=== PATIENT | male | born 1985 | race Caucasian/White ===

== ENCOUNTER → 2021-02-11 08:59 | Outpatient (CLI) | payer OTHER, SELFPAY ==
[2021-02-11 10:05] LABS: Absolute Lymphocyte Count 1.27 X10^3/uL (0.83-4.51); Absolute Neutrophil Count 2.3 X10^3/uL (2.0-7.7); Basophil# 0.03 X10^3/uL; Basophil% 0.7 % (0-1); Eosinophil# 0.07 X10^3/uL; Eosinophils% 1.7 % (0-5); Hematocrit 44.7 % (40-54); Hemoglobin 15.2 g/dL (13.0-16.5); Lymphocyte # 1.27 X10^3/ul (0.83-4.51); Lymphocyte % 31.3 % (19-41); Mean Corpuscular Volume 88.3 fL (80-94); Mean Platelet Vol. 10.9 fl (6.2-12.0); Monocyte% 9.9 % (0-10); NRBC Flagged by Analyzer 0 % (0-5); Neutrophil # 2.28 X10^3/uL (2.7-7.7); Neutrophil % 56.2 % (47-70); Platelet Count 188 K/mm3 (150-450); RBC Distribution Width CV 12.8 % (11.6-14.6); RBC Distribution Width SD 41.2 fl (35.1-43.9); Red Blood Count 5.06 M/mm3 (4.6-6.2); White Blood Count 4.1 K/mm3 (4.4-11.0)
[2021-02-11 10:27] LABS: ALB/GLOB Ratio 1.3 RATIO (0.9-2.4); AST(SGOT) 17 U/L (15-37); Alanine Aminotransfer ALT/SGPT 23 U/L (16-61); Albumin, Serum 4.2 g/dL (3.2-5.0); Alkaline Phosphatase 57 U/L (45-117); Anion Gap 3 (5-15); BUN 15 mg/dL (7-18); BUN/Creat Ratio 14.2 RATIO (10-20); Chloride 106 mmol/L (98-107); Cholesterol 148 mg/dL (200); Creatinine, Serum 1.06 mg/dL (0.70-1.30); EST Glomerular Filtration Rate 85 mL/min (>60); Est Glom Filt Rate - Afr Amer 103 mL/min (>60); Globulin 3.3 g/dL (2.2-4.2); Glucose 92 mg/dL (74-106); High Density Lipoprotein 53 mg/dL; Protein, Total 7.5 g/dL (6.4-8.2); Sodium Level 136 mmol/L (136-145); Triglycerides 61 mg/dL; Very Low Density Lipoprotein 12 mg/dL (5-40)
== END ==
PROVIDERS: Visit Provider Family Medicine
DX: Z82.49 Family history of ischemic heart disease and other diseases of the circulatory system (principal)
CPT/HCPCS: 80053; 80061; 85025

== ENCOUNTER → 2021-02-19 12:19 | Outpatient (CLI) | payer OTHER, SELFPAY ==
[2021-02-19 16:45] LABS: AST(SGOT) 19 U/L (15-37); Alanine Aminotransfer ALT/SGPT 26 U/L (16-61); Albumin, Serum 4.3 g/dL (3.2-5.0); Alkaline Phosphatase 65 U/L (45-117); Bilirubin, Direct 0.18 mg/dL (0.00-0.30); Globulin 3.5 g/dL (2.2-4.2); Protein, Total 7.8 g/dL (6.4-8.2)
== END ==
PROVIDERS: Visit Provider Family Medicine
DX: E80.6 Other disorders of bilirubin metabolism (principal)
CPT/HCPCS: 36415; 80076

== ENCOUNTER → 2022-06-23 | Outpatient (CLI) | payer OTHER, SELFPAY ==
[2022-06-28 15:43] LABS: HSV Culture Without Typing Positive (.)
== END | disposition home or self-care (01) ==
LOC: LABSPEC 17:59
PROVIDERS: Visit Provider Family Medicine
DX: N48.9 Disorder of penis, unspecified (principal)
CPT/HCPCS: 87255

== ENCOUNTER → 2025-02-13 | Outpatient (CLI) | payer OTHER, SELFPAY ==
--- OUTSIDE RECORDS SUMMARY | 2025-02-13 09:03 | XMS RPT_ITS | CCD ---
Author Organization [facility] Informalleghany health Partnership [facility] Care Team Providers Care Data Warehousing Manager Name Role Phone Yokasta Sarkar Attending Unavailable Yokasta Sarkar Attending Unavailable Shreyas Barker Attending Unavailable Sully GABRIEL, Olu Jacobs Primary Care Provider Medications Current Medications Medication Drug Class(es) Dates Sig (Normalized) Sig (Original) benzonatate 100 mg oral capsule (2 sources) Non-narcotic Antitussive Start: 02-21-2013 take 1 capsule by mouth three times daily as needed for cough benzonatate (TESSALON PERLES) 100 mg capsule Indications: Bronchitis Take 1 capsule by mouth three times daily as needed for Cough. 30 capsule 0 02/21/2013 Active Problems Active Problems Problem Classification Problem Date Documented Da te Episodic/Chronic Other connective tissue disease (2 sources) Pain in right foot; Translations: [Pain in right foot] 04-04-2024 Episodic Other male genital disorders (1 source) Disorder of penis, unspecified; Translations: [Disorder of penis, unspecified] Onset: 07-02-2022 Chronic Superficial injury; contusion (1 source) Contusion of right foot; Translations: [Contusion of right foot, initial encounter] 04-04-2024 Episodic Past or Other Problems Problem Classification Problem Date Documented Da te Episodic/Chronic Other connective tissue disease (1 source) Pain in left toe(s); Translations: [Pain in left toe(s)] Onset: 03-18-2022 Episodic Results Test Name Value Interpretation Reference Range Facility XR Foot - right AP and Later al and obliqueon 04-04-2024 IMPRESSION: No acute osseous abnormality Respiratory Therapy Assistant: JOEL Transcribe Date/Time: Apr 04 2024 9:56A Dictated by : KANU JUAREZ MD This examination was interpreted and the report reviewed and electronically signed by: KANU JUAREZ MD on Apr 04 2024 10:01AM [facility] DIVISION OF RADIOLOGY * * *Final Report* * * DATE OF EXAM: Apr 04 2024 9:55AM WOX [id number] - XR FOOT 3V AP/LAT/OBL RT / PROCEDURE REASON: Foot pain, right * * * * Physician Interpretation * * * * EXAMINATION: XR FOOT 3V AP/LAT/OBL RT CLINICAL HISTORY: Right foot pain Technique: XR FOOT 3V AP/LAT/OBL RT -- RIGHT with 3 views on 3 images Comparison: None RESULT: No acute fracture or dislocation. Joint spaces are maintained. DIVISION OF RADIOLOGY Provider, [facility] - 04/04/2024 * * *Final Report* * * DATE OF EXAM: Apr 04 2024 9:55AM WOX [id number] - XR FOOT 3V AP/LAT/OBL RT / PROCEDURE REASON: Foot pain, right * * * * Physician Interpretation * * * * EXAMINATION: XR FOOT 3V AP/LAT/OBL RT CLINICAL HISTORY: Right foot pain Technique: XR FOOT 3V AP/LAT/OBL RT -- RIGHT with 3 views on 3 images Comparison: None RESULT: No acute fracture or dislocation. Joint spaces are maintained. IMPRESSION IMPRESSION: No acute osseous abnormality Respiratory Therapy Assistant: JOEL Transcribe Date/Time: Apr 04 2024 9:56A Dictated by : KANU JUAREZ MD This examination was interpreted and the report reviewed and electronically signed by: KANU JUAREZ MD on Apr 04 2024 10:01AM [facility] Radiology Study observation (narrative) [facility] XR Foot - right AP and Later al and obliqueOrdered By: Ccf Provider on 04-04-2024 [facility] HSV Culture Screenon 022 HSV CULTURE Positive Abnormal . [facility] Comment on above: Order Comment: penil e lesion. Result Comment: Perf ormed at: - [facility] [address] [id number] Steelscope Operator: Edgardo Arteaga PhD, Phone: [phone] Performed By: #### L [id number] #### [facility] Laboratory [facility] [place], [address] Foot min 3 Viewson 2 Foot min 3 Views [facility] [address] [address] Foot min 3 Views MR#: [id number] Acct: [id number] Name: ADRIA BARRY Rep #: [id number] : 1985 M 36 From: Nahum Abdul MD PCP: Status: DEP AMB Study: Foot min 3 Views Date of Exam: 03/18/22 Exam# [id number] Ordering Dr: Yokasta Srakar NP STUDY: X-RAY - LEFT FOOT CLINICAL: Male, 36 years old. left great toe pain TECHNIQUE: 3 view(s) of the foot. COMPARISON: None. FINDINGS: Normal talus, calcaneus, and tarsal bones. Normal visualized subtalar, talonavicular, calcaneocuboid, tarsal and tarsometatarsal articulations. Normal metatarsi. Normal metatarsophalangeal joint of the great toe. There is a bipartite tibial sesamoid. Normal interphalangeal joint of the great toe. Normal phalanges of the great toe. Normal second through fifth metatarsophalangeal joints. Normal interphalangeal joints and phalanges of the lesser toes. The soft tissue structures are unremarkable. RAD/Foot min 3 Views IMPRESSION: Normal x-ray examination of the foot. Electronically Signed: Nahum Abdul MD at 8:55 EDT , CC: LABOR SERVICE REPRESENTATIVE-C Yokasta Sarkar Respiratory Therapy Assistant: Signed Normal [facility] Office Visit Reporton 2021 Office Visit Report [facility] [address] [place] [address] OFFICE VISIT Date of Service: 03/18/22 MR#: [id number] Acct: [id number] Patient: ADRIA BARRY Rep #: [id number] : 1985 Provider: DON joy Age/Sex: 36/M Location: [facility] Status: Signed Intake Vital Signs 03/18/22 08:35 Height 6 ft 1 in Weight: 156 lb BMI 20.5 BP 122/70 H Blood Pressure Location Lt brachial Position Sitting Respiration 14 Pulse 81 Pulse Source Monitor Temp 97.8 F Temp Source Temporal Pulse Oximetry (%) 98 Oxygen Delivery Method room air Intake Visit Reasons: LEFT FOOT/TOE INJURY PFSH Family History (Updated 03/18/22 @ 08:36 by Carolyn Garcia RN) Other Hypertension HPI HPI Details: ADRIA BARRY, is a 36 M who presents to the office today for stepping up on a trailer and felt a pop in left great toe yesterday. Patient states that it is painful to walk on and to put his boot on. He states he is never broken a bone so he does not know what broken bone pain feels like. ROS Const Constitutional: No body ache, chills or frequent falls Musc Musculoskeletal: Positive for abnormal gait, joint pain and joint swelling Neuro Neurology: Positive for abnormal gait; No frequent falls Exam Const General: cooperative and healthy appearing HENNV Head: normocephalic Resp Effort Inspection: normal respiratory effort Auscultation: Bilateral: Clear to Auscultation Cardio Palpation: normal PMI Rate: regular rate Rhythm: regular rhythm Extrem General: limp Other: Left great toe is mildly swollen. He is able to walk on it with a limp. He is able to move his toe although it is painful. The pain is located at the very base of the toe. There is no bruising or redness Psych Appearance: grossly normal Coding Level of Care Code Off vis,est,level 2 Diagnoses Pain of left great toe M79.675 Assessment and Plan Assessment and Plan (1) Pain of left great toe: Status: Acute Orders: Orders Foot min 3 Views Today M79.675 - Pain in left toe(s) Plan Left great toe x-ray was negative for any fractures. Discussed with patient about keeping his foot elevated, may ice area to help decrease swelling and pain. May take Tylenol or ibuprofen to help with pain and swelling. Since this is a soft tissue injury hopefully it will resolve quickly, although if it does not he may need to follow-up with shuttle truck driver for further evaluation. 03/18/22 1945 > Date Yokasta Verdin Signature: Date (if applicable) CC: Normal [facility] CNOVon 04-10-2021 CNOV Office Visit (PEDSWS ) -------- ADRIA BARRY ([id number]) 1985 M Date Time Provider Department 04/10/21 11:00 AM NURSE [facility] During your visit today, we recorded the following information about you: Referring Provider: SELF [200] Allergies As of Date: 04/10/2021 (No Known Allergies) Date Reviewed: 02/21/2013 Reviewed by: Nichole Mendez LPN - Fully Assessed Primary Visit Diagnosis:Encounter for immunization [Z23] Order(s):INFLUENZA VACCINE QUADRIVALENT 6 MO - 64 YRS IM [[id number]] Order #: [id number] Prescriptions as of 04/10/2021 - benzonatate (TESSALON PERLES) 100 mg capsule Take 1 capsule by mouth three times daily as needed for Cough. Problem List As Of Date: 04/10/2021 (None) Encounter Status:Closed by SACHIN PAULINO MA on 04/10/21 Normal [facility] Vital Signs Date Time Vital Sign Value Performing Clinician Quincy spear 04-04-2024 09:20-0400 Body temperature 97.3 [degF] Carol Ann Grey COUNSELING CASE MANAGER.CHECK EXAMINER Work Phone: [facility] 04-04-2024 09:20-0400 Body weight 77 kg Carol Ann Grey COUNSELING CASE MANAGER.CHECK EXAMINER Work Phone: [facility] 04-04-2024 09:20-0400 Diastolic blood pressure 80 mm[Hg] Carol Ann Grey COUNSELING CASE MANAGER.CHECK EXAMINER Work Phone: [facility] 04-04-2024 09:20-0400 Heart rate 59 /min Carol Ann Grey COUNSELING CASE MANAGER.CHECK EXAMINER Work Phone: [facility] 04-04-2024 09:20-0400 Respiratory rate 21 /min Carol Ann Grey COUNSELING CASE MANAGER.CHECK EXAMINER Work Phone: [facility] 04-04-2024 09:20-0400 SaO2% (BldA) [Mass fraction] 98 % Carol Ann Grey COUNSELING CASE MANAGER.CHECK EXAMINER Work Phone: [facility] 04-04-2024 09:20-0400 Systolic blood pressure 110 mm[Hg] Carol Ann Grey COUNSELING CASE MANAGER.CHECK EXAMINER Work Phone: [facility] Encounters Encounter Date Encounter Type Care Provider Facility Start: 04-04-2024 End: 04-04-2024 Subsequent hospital visit by physician Xr [facility] Guillermo Work Phone: Radiology Comment on above: Foot pain, right [M7 9.671] Start: 04-04-2024 End: 04-04-2024 Patient encounter procedure Carol Ann Grey APRN.CHECK EXAMINER Work Phone: [facility] Care Comment on above: Foot pain, right (Pr imary Dx); Contusion of right foot, initial encounter Start: 06-23-2022 End: 06-23-2022 ambulatory [facility] Facility:[facility] Start: 03-18-2022 End: 03-18-2022 ambulatory [facility] Facility:[facility] Start: 03-18-2022 End: 03-18-2022 ambulatory [facility] Facility:[facility] Procedures Date Procedure Procedure Detail Performing Clinician Start: 04-04-2024 Radex foot complete minimum 3 views Carol Ann Grey APRN.NOA Work Phone: Start: 02-21-2013 Lipid 1996 panel - S jaclyn or Plasma Carol Ann Grey APRN.NOA Work Phone: Plan of Treatment Date Care Activity Detail Author Start: 04-07-2024 Influenza vaccination Influenza Vacc ine (#1) [facility] Start: 04-07-2023 Covid-19 Vaccine ( season) Covid-19 Vaccine ( season) [facility] Start: 12-02-2022 Lipid panel Lipid Screening [facility] Start: 12-02-2006 Hepatitis B Vaccine (1 of 3 - 19+ 3-dose series) Hepatitis B Vaccine (1 of 3 - 19+ 3-dose series) [facility] Start: 12-02-2006 Urine microalbumin profile DTaP,Tdap,Td Vaccine (1 - Tdap) [facility] Start: 12-02-2005 Anxiety Screening Anxiety Screening [facility] Start: 12-02-2005 Depression Screening Depression Scre ening [facility] Start: 12-02-2005 Hepatitis C screening Hepatitis C Sc reening [facility] Start: 12-02-2005 HIV screening HIV Screening [facility] Start: 12-02-1993 Pneumococcal vaccination Pneum ococcal Vaccine (1 of 2 - PCV) [facility] Immunizations Immunization Date Immunization Notes Care Provider Chata sullivan 04-10-2021 influenza, injectabl e, quadrivalent, contains preservative Carol Ann Grey APRN.CNP Work Phone: [facility] 04-10-2021 influenza virus vacc ine, unspecified formulation Carol Ann Grey APRN.CNP Work Phone: [facility] Payers Date Payer Category Payer Unknown MMO MMO [employer] [id number] 2023-Present [phone] [address] [place] [address] Indemnity [id number] 2022 Self-pay 2021 Unknown [id number] Unknown [id number] Unknown [id number] Unknown [id number] Social History Date Type Detail Facility Start: 04-04-2024 Tobacco smoking stat us NHIS Occasional tobacco smoker [facility] History of tobacco use Cigarette Smoker C [facility] Start: 04-04-2024 Alcoholic beverage intake Curr ent drinker of alcohol (finding) [facility] Start: 04-10-2021 End: 04-04-2024 History of Social function [facility] Start: 04-10-2021 End: 04-04-2024 Tobacco use panel [facility] National Score (1-10 0), lower number is lower risk Not on file [facility] Start: 04-04-2024 Tobacco Comment trying to quit [facility] Start: 1985 Sex assigned at Not on file C [facility] History of Present illness Narrative 04-04-2024 Juancarlos Louise RT(R) - 04/04/2024 9:50 AM EDT Note Date & Type Note Facility 04-04-2024 History of Presen t illness Narrative Radiology Service Progress Note PATIENT NAME: Adria Barry DATE OF SERVICE: April 04, 2024 TIME: 9:46 AM PATIENT IDENTITY VERIFICATION COMPLETED USING TWO (2) IDENTIFIERS: Name and Date of confirmed by patient verbally. FALL SCREENING: Has the patient had 2 falls in the last year or 1 fall with injury or currently using an Ambulatory Assistive Device (Walker, Cane, Wheelchair, Crutches, etc.)? No PATIENT GENDER DATA: Male PATIENT RELEVANT IMPLANT DATA REVIEWED: Not Applicable PATIENT PRESENTS WITH AN IMPLANTABLE OR ATTACHED HEALTH CLUB ATTENDANT: No RADIOLOGY DEPARTMENT: General X-ray: Exam(s) Completed: Lower Extremity X-Ray(s): Foot, Right and Wt. Bearing PERIPHERAL IV DATA: Not applicable SIGNED BY: RT Star(R) April 04, 2024 9:46 AM documented in this encounter [facility] History of Present illness Narrative 04-04-2024 Carol Ann Grey APRN.CHECK EXAMINER - 04/04/2024 9:23 AM EDT Note Date & Type Note Facility 04-04-2024 History of Presen t illness Narrative This note was created using Propertyg[employer]. Subjective Adria Barry is a 38 year old male. 38 year old male with no PMH presents for foot complaints. Acute onset yesterday Right aspect of foot below great toe (Region where he has a known bunion) States pain associated with playing soccer yesterday Jammed it during a play Denies head injury or LOC Denies neck or back pain Denies abdominal pain Denies skin rash or lesions. Endorses known history of bunion to right great foot, has also had prior history of injury to right foot Denies prior surgery or fracture. The history is provided by the patient. No world language teacher was used. Trauma This is a new problem. The current episode started yesterday. The problem occurs constantly. The problem has been gradually worsening. Pertinent negatives include no abdominal pain, anorexia, arthralgias, change in bowel habit, chest pain, chills, congestion, coughing, diaphoresis, fatigue, fever, headaches, joint swelling, myalgias, nausea, neck pain, numbness, rash, sore throat, swollen glands, urinary symptoms, vertigo, visual change, vomiting or weakness. The symptoms are aggravated by walking (touching). He has tried nothing for the symptoms. The treatment provided no relief. PAST MEDICAL HISTORY No date: NEGATIVE MEDICAL HISTORY PAST SURGICAL HISTORY No date: NONE ALLERGIES Patient has no known allergies. MEDICATIONS benzonatate (TESSALON PERLES) 100 mg capsule Take 1 capsule by mouth three times daily as needed for Cough. (Patient not taking: Reported on 04/04/2024) FAMILY HISTORY Problem Relation Age of Onset None Mother None Father None Brother Ischemic Heart Disease Paternal Grandfather age 52 other (lung cancer [Other]) Unknown runs in family Social History Tobacco Use Smoking status: Some Days Current packs/day: 0.50 Types: Cigarettes Tobacco comments: trying to quit Substance Use Topics Alcohol use: Yes Comment: occassionally-mostly weekends Drug use: No Review of Systems Constitutional: Negative for chills, diaphoresis, fatigue and fever. HENT: Negative for congestion and sore throat. Eyes: Negative for pain, discharge and itching. Respiratory: Negative for cough. Cardiovascular: Negative for chest pain. Gastrointestinal: Negative for abdominal pain, anorexia, change in bowel habit, nausea and vomiting. Musculoskeletal: Negative for arthralgias, joint swelling, myalgias and neck pain. Right foot pain Skin: Negative for rash. Allergic/Immunologic: Negative for environmental allergies, food allergies and immunocompromised state. Neurological: Negative for vertigo, weakness, numbness and headaches. Objective BP 110/80 Pulse (!) 59 Temp 36.3 C (97.3 F) Resp 21 Wt 77 kg (169 lb 12.1 oz) SpO2 98% Physical Exam Vitals and nursing note reviewed. Constitutional: General: He is not in acute distress. Appearance: Normal appearance. He is not ill-appearing, toxic-appearing or diaphoretic. HENT: Head: Normocephalic and atraumatic. Right Ear: External ear normal. Left Ear: External ear normal. Nose: Nose normal. No congestion or rhinorrhea. Mouth/Throat: Mouth: Mucous membranes are moist. Pharynx: Oropharynx is clear. No oropharyngeal exudate or posterior oropharyngeal erythema. Eyes: General: Right eye: No discharge. Left eye: No discharge. Extraocular Movements: Extraocular movements intact. Conjunctiva/sclera: Conjunctivae normal. Pupils: Pupils are equal, round, and reactive to light. Cardiovascular: Rate and Rhythm: Normal rate and regular rhythm. Pulses: Normal pulses. Heart sounds: Normal heart sounds. No murmur heard. No friction rub. No gallop. Pulmonary: Effort: Pulmonary effort is normal. No respiratory distress. Breath sounds: Normal breath sounds. No stridor. No wheezing, rhonchi or rales. Chest: Chest wall: No tenderness. Abdominal: General: Abdomen is flat. There is no distension. Palpations: Abdomen is soft. There is no mass. Tenderness: There is no abdominal tenderness. There is no guarding or rebound. Hernia: No hernia is present. Musculoskeletal: General: Swelling and tenderness present. No deformity or signs of injury. Normal range of motion. Cervical back: Normal range of motion and neck supple. No rigidity or tenderness. Right lower leg: No edema. Left lower leg: No edema. Comments: Right foot with Hallux vagus right +erythema +tenderness Full active and passive ROM Skin intact DP + 2 B/L Ambulatory Weight bearing. Lymphadenopathy: Cervical: No cervical adenopathy. Skin: General: Skin is warm and dry. Capillary Refill: Capillary refill takes less than 2 seconds. Coloration: Skin is not jaundiced or pale. Findings: No bruising, lesion or rash. Neurological: General: No focal deficit present. Mental Status: He is alert and oriented to person, place, and time. Cranial Nerves: No cranial nerve deficit. Sensory: No sensory deficit. Motor: No weakness. Coordination: Coordination normal. Gait: Gait normal. Deep Tendon Reflexes: Reflexes normal. Psychiatric: Mood and Affect: Mood normal. Behavior: Behavior normal. Thought Content: Thought content normal. Assessment and Plan ASSESSMENT/PLAN: 1. Foot pain, right - ICD9: 729.5, ICD10: M79.671 (primary diagnosis) +pain associated with playing soccer No red flags - XR FOOT GENERAL 3V AP/LAT/OBL RIGHT-negative RICE therapy OTC analgesics F/U with ortho for continued sx. 2. Contusion of right foot, initial encounter - ICD9: 924.20, ICD10: S90.31XA +pain associated with playing soccer No red flags - XR FOOT GENERAL 3V AP/LAT/OBL RIGHT-negative RICE therapy OTC analgesics F/U with ortho for continued sx. Carol Ann Grey APRN.CHECK EXAMINER documented in this encounter [facility] Evaluation note Note Date & Type Note Facility Evaluation note Diagnosis Foot pain, right- Primary Pain in limb Contusion of right foot, initial encounter Foot pain, right Pain in limb documented in this encounter [facility] Evaluation note Note Date & Type Note Facility Evaluation note Diagnosis Foot pain, right Pain in limb documented in this encounter [facility] Reason for referral (narrative) Diagnostic Procedure Only (Urgent) - Closed Note Date & Type Note Facility Reason for referral (narrati ve) Specialty Diagnoses / Procedures Referred By Alvaroac t Referred To Contact XR IMAGING Diagnoses Foot pain, right Procedures XR FOOT GENERAL 3V AP/LAT/OBL RIGHT RADEX FOOT COMPLETE MINIMUM 3 VIEWS Carol Ann Grey APRN.CHECK EXAMINER [address] [place] [address] [place] [address] Referral ID Status Reason Start Date Expiration Date V isits Requested Visits Authorized [id number] Closed Auto-Generate d Referral 04/04/2024 05/04/2025 1 1 [facility] Reason for referral (narrative) Diagnostic Procedure Only (Urgent) - Closed Note Date & Type Note Facility Reason for referral (narrati ve) Specialty Diagnoses / Procedures Referred By Contac t Referred To Contact XR IMAGING Diagnoses Foot pain, right Procedures XR FOOT GENERAL 3V AP/LAT/OBL RIGHT RADEX FOOT COMPLETE MINIMUM 3 VIEWS Carol Ann Grey APRN.CHECK EXAMINER [address] [id number] [place] [address] Referral ID Status Reason Start Date Expiration Date V isits Requested Visits Authorized [id number] Closed Auto-Generate d Referral 04/04/2024 05/04/2025 1 1 [facility] Reason for visit Narrative Diagnostic Procedure Only (Urgent) - Closed Note Date & Type Note Facility Reason for visit Narrative Specialty Diagnoses / Procedures Referred By Contac t Referred To Contact XR IMAGING Diagnoses Foot pain, right Procedures XR FOOT GENERAL 3V AP/LAT/OBL RIGHT RADEX FOOT COMPLETE MINIMUM 3 VIEWS Carol Ann Grey APRN.CHECK EXAMINER [address] [place] [address] [place] [address] Referral ID Status Reason Start Date Expiration Date V isits Requested Visits Authorized [id number] Closed Auto-Generate d Referral 04/04/2024 05/04/2025 1 1 [facility] Summary Purpose Family History No Family History Records FoundNo Family History Records Found Advance Directives No Advanced Directives Records FoundNo Advanced Directives Records Found Additional Source Comments (unrecognized sect ion and content) No Status Records FoundNo Status Records Found INFORMATION SOURCE (unrecogn ized section and content) DATE CREATED AUTHOR 09/10/2021 [facility] CREATED AUTHOR AUTHOR'S ORGANIZ ATION 07/02/2022 [facility] Source Comments (unrecognize d section and content) In the event this informatio n is protected by the Federal Confidentiality of Alcohol and Drug Abuse Patient Records regulations: The Federal rules restrict any use of the information to criminally investigate or prosecute any alcohol or drug abuse patient[facility] the event this information is protected by the Federal Confidentiality of Alcohol and Drug Abuse Patient Records regulations: The Federal rules restrict any use of the information to criminally investigate or prosecute any alcohol or drug abuse patient.[facility] Reason for Visit (unrecogniz ed section and content) Reason Comments Trauma Right foot great toe injury x 1 day Care Teams (unrecognized sec tion and content) Data Warehousing Manager Relationship Specialty Start Date End Date Olu Virk MD [address] [facility] [address] [place] [address] PCP - General Family Medicine 04/04/24 Data Warehousing Manager Relationship Specialty Start Date End Date Olu Virk MD [address] [facility] [address] [place] [address] PCP - General Family Medicine 04/04/24 FOR RECORDS PERTAINING TO PATIENTS WHO ARE OR HAVE BEEN ENROLLED IN A CHEMICAL DEPENDENCY/SUBSTANCEABUSE PROGRAM, SOME INFORMATION MAY BE OMITTED. This clinical summary was aggregated from multiple sources. Caution should be exercised in using it in the provision of clinical care. This summary normalizes information from multiple sources, and as a consequence, information in this document may materially change the coding, format and clinical context of patient data. In addition, data may be omitted in some cases. CLINICAL DECISIONS SHOULD BE BASED ON THE PRIMARY CLINICAL RECORDS. [facility] [employer] [facility] provides no warranty or guarantee of the accuracy or completeness of information in this document.
[2025-02-13 10:34] LABS: Hematocrit 44.4 % (40-54); Hemoglobin 14.9 g/dL (13.0-16.5); Immature Granulocytes Count 0.030 X10^3/uL (0.0-0.0); Mean Corp Hgb Conc 33.6 g/dL (32-36); Mean Corpuscular Volume 90.2 fL (80-94); Mean Platelet Vol. 11.1 fl (6.2-12.0); NRBC Flagged by Analyzer 0 % (0-5); Platelet Count 173 K/mm3 (150-450); RBC Distribution Width CV 13.0 % (11.6-14.6); RBC Distribution Width SD 42.5 fl (35.1-43.9); Red Blood Count 4.92 M/mm3 (4.6-6.2); White Blood Count 4.7 K/mm3 (4.4-11.0)
[2025-02-13 11:46] LABS: AST(SGOT) 18 U/L (<=37); Alanine Aminotransfer ALT/SGPT 19 U/L (<=46); Albumin, Serum 4.6 g/dL (3.5-5.0); Alkaline Phosphatase 65 U/L (40-129); Anion Gap 11 (5-15); BUN 19 mg/dL (4-19); BUN/Creat Ratio 18.1 RATIO (10-20); Calcium,Total 9.7 mg/dL (7.6-11.0); Carbon Dioxide 24.2 mmol/L (21.0-32.0); Chloride 103 mmol/L (98-108); Cholesterol 192 mg/dL (<=200); Globulin 2.8 g/dL (2.2-4.2); Glucose 87 mg/dL (70-99); Low Density Lipoprotein Calc. 118 mg/dL; Potassium 4.4 mmol/L (3.3-5.1); Triglycerides 126 mg/dL; Very Low Density Lipoprotein 25 mg/dL (5-40); cholesterol:hdl ratio screen 3.90
[2025-02-13 11:47] LABS: Vitamin B12 477 pg/mL (180-914); Vitamin D,25 Hydroxy 33.6 ng/mL (30-100)
== END | disposition home or self-care (01) ==
LOC: MFPLAB 08:31
PROVIDERS: PCP Family Medicine; Referring Provider Family Medicine; Visit Provider Family Medicine
DX: R53.83 Other fatigue (principal); Z83.438 Family history of other disorder of lipoprotein metabolism and other lipidemia
CPT/HCPCS: 36415; 80053; 80061; 82306; 82607; 84439; 84443; 85025

== ENCOUNTER → 2025-06-20 | Outpatient (CLI) | payer OTHER, SELFPAY ==
--- NOTE | 2025-06-20 14:15 | LIP_PTH ---
PATIENT: ADRIA HO [facility] U#:[id number] AGE/SX: 39/M ROOM: RE06/20/[address]: Dr. Kinga Rios MD : [id number] BED: DIS: 06/20/2025 SPEC #: [id number] RECD: 06/20/25 15:02 STATUS: MAURIZIO REQ #: [id number] FLORENCIA: 06/20/25 14:[address]: Kinga Rios DEPT: SURGICAL PATHOLOGY RECD BY: Maico Porter ENTERED: 06/20/25 15:24 SP TYPE: LIPOMA OTHR DR: Dr. Olu Virk MD Tissues: A - Soft tissues, NOS Procedures: Surgery Specimen Level III HEADER OPERATION: Right thigh lipoma excision PRE-OP DIAGNOSIS: Right thigh lipoma TISSUE SUBMITTED: A- Right thigh lipoma MICROSCOPIC DIAGNOSIS A. Soft tissue, right thigh, excision: * Lipoma MICROSCOPIC DESCRIPTION Slides are reviewed. GROSS DESCRIPTION A. Received in formalin labeled with the patient's name and date of . Designated as R thigh lipoma 3.8 x 2.7 x 1.1 cm hardwick-yellow lobulated portion of soft tissue. The external surfaces are inked black. Sectioning reveals hardwick-yellow, somewhat edematous cut surfaces with threadlike fibrosis throughout. Hospice Nurse sections are submitted in 2 cassettes. IN 06/20/2025PT:[id number]
== END | disposition home or self-care (01) ==
LOC: LABSPEC 15:11
PROVIDERS: PCP Family Medicine; Referring Provider Surgery; Visit Provider Surgery
DX: D17.23 Benign lipomatous neoplasm of skin and subcutaneous tissue of right leg (principal)
CPT/HCPCS: 88304